=== PATIENT | female | born 1970 | race Hispanic/Latino ===

== ENCOUNTER 2021-09-28 18:38 | Emergency (ER) | payer SELFPAY ==
[2021-09-28] MEDS ORDERED: Fluorescein Opthalmic Strip ONE (18:57)
[2021-09-28] MEDS ORDERED: Tetracaine 0.5% PF 4 ML BOT ONE (18:57)
== END 2021-09-28 20:05 | disposition home or self-care (01) ==
LOC: CSHERS 18:38
DX: T26.11XA Burn of cornea and conjunctival sac, right eye, initial encounter (principal); X16.XXXA Contact with hot heating appliances, radiators and pipes, initial encounter
CPT/HCPCS: 99283